=== PATIENT | male | born 1955 | race Caucasian/White ===

== ENCOUNTER 2016-08-16 12:06 | Emergency (ER) | payer MEDICARE ==
[~2016-08-16] VITALS: Ht 182.9 cm; Wt 81.6 kg
--- NOTE | 2016-08-16 12:06 | NUR ---
1CM LACERATION TO R 4TH DIGIT S/P DOG BITE. NAD NOTED. PT AAO X4, AMB WITH STEADY GAIT. RR EVEN AND UNLABORED. VSS. PA AT BEDSIDE FOR EVAL.
[2016-08-16] MEDS ORDERED: AMOX/CLAVULANATE 875 MG TABLET PO STA (12:19)
[2016-08-16] MEDS ORDERED: TDAP [DIPH/PERTUSSIS/TET] 0.5 ML VIAL IM STA (12:19)
[2016-08-16] MEDS ORDERED: LIDOCAINE 2% 20 ML MDV TP STA (12:19)
[2016-08-16] MEDS ORDERED: AMOX/CLAVULANATE 875 MG TABLET ONE (12:22)
[2016-08-16] MEDS ORDERED: TDAP [DIPH/PERTUSSIS/TET] 0.5 ML VIAL IM ONE (12:22)
--- NOTE | 2016-08-16 12:33 | NUR ---
MEDICATIONS GIVEN ORDERED.
[2016-08-16 13:11] VITALS: BP 122/75
== END 2016-08-16 13:12 | disposition home or self-care (01) ==
LOC: ER 12:10
DX: S61.254A Open bite of right ring finger without damage to nail, initial encounter (principal); W54.0XXA Bitten by dog, initial encounter; Y93.89 Activity, other specified; Y92.89 Other specified places as the place of occurrence of the external cause; Y99.8 Other external cause status
CPT/HCPCS: 12001; 90471; 90715; 99283; A4606; A6402 ×2; Z7610

== ENCOUNTER 2022-03-17 08:03 | Inpatient (IN) | payer MEDICARE, MEDICAID ==
[~2022-03-17] VITALS: Ht 170.2 cm; Wt 95.3 kg
--- NOTE | 2022-03-17 08:10 | NUR ---
BIBSELF c/o chest pain radiating to the back. pain level 8/10. alert oriented. no s/s of distress
--- NOTE | 2022-03-17 08:13 | NUR ---
hooked to monitors
--- NOTE | 2022-03-17 08:15 | NUR ---
EMT at bedside for EKG
--- NOTE | 2022-03-17 08:22 | NUR ---
IV established at RAC 20G
--- NOTE | 2022-03-17 08:25 | NUR ---
blood collected sent to lab.
[2022-03-17 08:51] LABS: BASOPHILS # (AUTO) 0.1 K/uL (0.0-0.2); BASOPHILS % (AUTO) 1.3 % (0.0-2.0); EOSINOPHILS % (AUTO) 3.1 % (0.0-6.0); HEMATOCRIT 42 % (39-51); LYMPHOCYTES # (AUTO) 2.5 K/uL (0.8-4.8); MEAN CORPUSCULAR HGB CONC 33 g/dl (31.0-36.0); MEAN CORPUSCULAR VOLUME 88 fL (80-96); MONOCYTES # (AUTO) 0.7 K/uL (0.1-1.30); NEUTROPHILS # (AUTO) 5.1 K/uL (1.8-8.9); NEUTROPHILS % (AUTO) 58.6 % (43.0-81.0); PLATELET COUNT (AUTO) 249 K/uL (150-450); RED BLOOD CELL COUNT(AUTO) 4.78 MIL/uL (4.5-6.0); WHITE BLOOD COUNT (AUTO) 8.7 K/uL (4.3-11.0)
[2022-03-17 09:13] LABS: CALCIUM, SERUM 9.4 mg/dL (8.5-10.1); CREATININE 1.6 mg/dL (0.6-1.3); POTASSIUM 3.8 mmol/L (3.5-5.1)
[2022-03-17 09:25] LABS: ALBUMIN 3.1 g/dL (3.4-5.0); BILIRUBIN,TOTAL 0.4 mg/dL (0.2-1.0); TOTAL PROTEIN, SERUM 7.4 g/dL (6.4-8.2)
[2022-03-17] MEDS ORDERED: METOPROLOL TARTRATE INJ 5 MG/5 ML AMPUL ONE ×3 (10:23→10:53)
[2022-03-17] MEDS ORDERED: IOHEXOL-350 100 ML VIAL IV ONE (10:23)
[2022-03-17] MEDS ORDERED: NITROGLYCERIN 0.4 MG/TAB BOTTLE ONE (10:23)
[2022-03-17] MEDS ORDERED: CT SWABBABLE VALVE TRANS SET 1 EA INFUS.SET MC ONE (10:23)
[2022-03-17] MEDS ORDERED: IV NS 0.9% 250 ML IV ONE (10:23)
[2022-03-17] MEDS ORDERED: ZOLPIDEM TARTRATE 5 MG TABLET PO PRN (10:30)
[2022-03-17] MEDS ORDERED: ACETAMINOPHEN 325 MG TABLET PO PRN (10:30)
[2022-03-17] MEDS ORDERED: Z GUARD REMEDY 4 OZ OINT TP PRN (10:30)
[2022-03-17] MEDS ORDERED: HYDROCODONE/APAP 10/325MG TABLET PO PRN (10:30)
[2022-03-17] MEDS ORDERED: MAGNESIUM HYDROXIDE 30 ML UDC PO PRN (10:30)
[2022-03-17] MEDS ORDERED: IV NS 0.9% 1,000 ML IV PRN (10:30)
[2022-03-17] MEDS ORDERED: MAG HYDROX/AL HYDROX/SIMETH 30 ML UDC PO PRN (10:30)
[2022-03-17] MEDS: METOPROLOL TARTRATE INJ 5 MG/5 ML AMPUL IVP PRN ×6 (10:30→10:55)
[2022-03-17] MEDS ORDERED: ONDANSETRON HCL/PF 4 MG/2 ML VIAL IVP PRN (10:30)
[2022-03-17] MEDS ORDERED: NITROGLYCERIN 0.4 MG/TAB BOTTLE SL ONE (10:30)
--- NOTE | 2022-03-17 10:35 | NUR ---
PT REPORT GIVEN TO BRANDYN BLANK
[2022-03-17] MEDS ORDERED: TAMS-12 PO (11:10)
[2022-03-17] MEDS ORDERED: ATOR40TA PO (11:10)
[2022-03-17] MEDS ORDERED: IRBE150T28 PO (11:10)
[2022-03-17] MEDS ORDERED: ERGO500093 PO (11:10)
[2022-03-17] MEDS ORDERED: ZOLP10TA2 PO (11:10)
[2022-03-17] MEDS ORDERED: METO25TA4 PO (11:10)
[2022-03-17] MEDS ORDERED: DONE5TAB34 PO (11:10)
[2022-03-17] MEDS ORDERED: FAMO40TA7 PO (11:10)
[2022-03-17] MEDS ORDERED: ASPI-1420 PO (11:10)
--- NOTE | 2022-03-17 13:23 | NUR ---
seen by Dr. king at the parking lot facility. pt assisted back to the bed.
--- NOTE | 2022-03-17 13:45 | NUR ---
PT TRANSFERRED TO [facility] VIA [facility] ACLS PROTOCOL. PT ABLE TO AMBULATE FROM [facility] TO BED W/ STEADY GAIT. WARM HANDOFF GIVEN TO BRANDYN RUIZ
--- NOTE | 2022-03-17 13:50 | NUR ---
RN NOTE- PT BROUGHT TO 313-2 FOR ADMISSION. BEGIN ADMIT PROCESS
--- NOTE | 2022-03-17 13:51 | NUR ---
MARKET DEVELOPMENT EXECUTIVE NOTE- 66 Y/O MALE BROUGHT TO ED BY FAMILY FOR CHEST PAIN. PMHX- KIDNEY INFECTION, HYDRONEPHROSIS, NEPHROSTOMY TUBE, HTN GERD, CHF. PT HX OF TOBACCO USE DAILY X YEARS. PT IS COVID NEG, NKA AND AOX4. AMBULATORY, SKIN INTACT AND AFFECT APPROPRIATE. VS STABLE, CXR UNREMARKABLE, CBC WNL, CHEM PANEL ELEVATED BUN / CREAT, ELEVATED BNP. PLACED ON TELE MONITOR - SR 80. FOOD PROVIDED, NEEDS ATTENDED, ORDERS RECEIVED AND COMPLIED WITH. SIDE RAILS UP, BED LOCKED, CALL LIGHT IN REACH . MONITOR / ASSIST
[2022-03-17 14:15] VITALS: BP 120/75
[2022-03-17 16:00] VITALS: BP 139/73
--- NOTE | 2022-03-17 18:05 | NUR ---
RN NOTE- PT SIGNED CONSENT TO GO OUTSIDE HOSPITAL TO SMOKE . PLACED IN CHART. HEAT READER ESCORTED PT DOWN.
--- NOTE | 2022-03-17 18:38 | NUR ---
PRODUCTION SUPPORT ENGINEER CLOSING NOTE PATIENT IN BED, ALERT AND ORIENTED X4. ABLE TO COMMUNICATE NEEDS WITH THE STAFF. AFEBRILE. NO C/O CHEST PAIN OR DISCOMFORT. NO SOB/WHEEZING NOTED. KEPT ON GETTING OUT OF THE UNIT DESPITE EXPLAINING HOSPITAL RULES. SIGNED SMOKING WAIVER. WITH IV ACCESS ON RIGHT ANTECUBITAL G18. SAFETY MEASURES IN PLACE. SIDE RAILS UP, BED IN LOCKED AND LOWEST POSITION. ADVISED TO USE THE CALL LIGHT WHEN IN NEED OF ASSISTANCE. ALL NURSING NEEDS ATTENDED. PATIENT WILL GO TO ICU RM 252 AT 0700 IN PREPARATION FOR PROCEDURE (TRANSESOPHAGEAL ECHOCARDIOGRAM).
--- NOTE | 2022-03-17 19:35 | NUR ---
RN OPENING NOTE RECEIVED PATIENT IN BED; AWAKE, ALERT AND ORIENTED X 4. ON ROOM AIR; TOLERATING WELL. BREATHING EVEN AND NONLABORED. NOT IN ANY FORM OF RESPIRATORY DISTRESS. DENIES ANY PAIN OR DISCOMFORT AT THIS TIME. ON TELEMETRY MONITORING WHICH READS SINUS RHYTHM HR-76 BPM. WITH IV ACCESS ON RIGHT ANTECUBITAL 18g: PATENT, INTACT AND SALINE LOCKED. ABLE TO MAKE NEEDS KNOWN. SAFETY MEASURES IMPLEMENTED: CALL LIGHT AND TABLE WITHIN REACH, SIDE RAILS UP X 2, BED IN LOWEST LOCKED POSITION. WILL CONTINUE PLAN OF CARE.
[2022-03-17 20:00] VITALS: BP 123/78
[2022-03-17] MEDS ORDERED: ATORVASTATIN 40 MG TABLET PO SCH (22:00)
--- NOTE | 2022-03-17 22:51 | NUR ---
RN NOTE ZOLPIDEM 5 MG GIVEN PO PER PATIENT'S REQUEST. WILL CONTINUE TO MONITOR
[2022-03-18] VITALS: BP 134/73
[2022-03-18 06:55] LABS: BASOPHILS # (AUTO) 0.1 K/uL (0.0-0.2); BASOPHILS % (AUTO) 0.9 % (0.0-2.0); EOSINOPHILS % (AUTO) 4.7 % (0.0-6.0); HEMATOCRIT 39 % (39-51); HEMOGLOBIN 12.8 g/dL (13.5-17.5); LYMPHOCYTES # (AUTO) 3.2 K/uL (0.8-4.8); LYMPHOCYTES % (AUTO) 36.4 % (20.0-44.0); MEAN CORPUSCULAR HGB CONC 33 g/dl (31.0-36.0); MEAN CORPUSCULAR VOLUME 89 fL (80-96); MONOCYTES # (AUTO) 0.7 K/uL (0.1-1.30); MONOCYTES % (AUTO) 8.4 % (2.0-12.0); NEUTROPHILS # (AUTO) 4.4 K/uL (1.8-8.9); NEUTROPHILS % (AUTO) 49.6 % (43.0-81.0); PLATELET COUNT (AUTO) 237 K/uL (150-450); RED BLOOD CELL COUNT(AUTO) 4.37 MIL/uL (4.5-6.0); WHITE BLOOD COUNT (AUTO) 8.8 K/uL (4.3-11.0)
[2022-03-18 07:00] VITALS: BP 146/97
--- NOTE | 2022-03-18 07:07 | NUR ---
RN CLOSING NOTE PATIENT IN BED; AWAKE, A/O X 4. STABLE ON ROOM AIR. RESPIRATION EVEN AND UNLABORED. IN NO APPARENT DISTRESS. NO C/O ANY PAIN OR DISCOMFORT AT THIS TIME. ON TELE MONITORING WHICH READS SR HR-74 BPM. WITH IV ACCESS ON RIGHT ANTECUBITAL 18g: PATENT, INTACT AND SALINE LOCKED. ALL NEEDS ATTENDED. SAFETY MEASURES IN PLACE: CALL LIGHT AND TABLE WITHIN REACH, SIDE RAILS UP X 2, BED IN LOWEST LOCKED POSITION. WHEELED TO ICU ROOM 252 AND ENDORSED TO BRANDYN POOLE FOR SAKINA.
[2022-03-18 07:25] LABS: CALCIUM, SERUM 9.4 mg/dL (8.5-10.1); CREATININE 1.6 mg/dL (0.6-1.3); MAGNESIUM 2.2 mg/dL (1.8-2.4); PHOSPHORUS 4.7 mg/dL (2.5-4.9)
[2022-03-18] MEDS ORDERED: ANESTHESIA TRAY IN PYXIS 1 EA TRAY MC ONE (07:36)
--- NOTE | 2022-03-18 07:59 | NUR ---
RN NOTES RECEIVED PATIENT IN THE BED A/O X4, PATIENT ON O2-2LNC, NO ACUTE RESPIRATORY DISTRESS,HR-70 ON BEDSIDE MONITOR. PATIENT SCHEDULED BEDSIDE PROCEDURE ROXANNA VIA Dr COLON TRAFFIC CONTROL SPECIALIST, PATIENT HAS NO ACUTE RESPIRATORY DISTRESS,REFUSING PAIN. INFUSING NS @100ML/HR ON RAC AREA INTACT. PATIENT NPO, CALL LIGHT WITHIN TO REACH. MD NEXT TO THE BED EDUCATED PATIENT ABOUT PROCEDURE. WILL FOLLOW UP.
[2022-03-18 08:00] VITALS: BP 131/74
[2022-03-18 08:18] VITALS: BP 135/72
[2022-03-18 08:30] VITALS: BP 106/71
--- NOTE | 2022-03-18 08:30 | NUR ---
rn notes bedside transesophageal echocardiogram done , patient awake, no respiratory distress, anesthesiologist next to the bed, hr-73, bp- 116/70, r-47, o2-98 2lnc. also seen hospitalist Dr Yancey patient after fully waking up will be discharge home. will monitoring.
[2022-03-18 09:00] VITALS: BP_SYST 106; BP_SYST 124; BP_DIAS 68; BP_DIAS 79
[2022-03-18] MEDS ORDERED: NICOTINE PATCH (21MG) 21 MG PATCH.TD24 TD SCH (09:00)
[2022-03-18] MEDS ORDERED: ASPIRIN 81 MG TAB.CHEW PO SCH (09:00)
--- NOTE | 2022-03-18 11:28 | NUR ---
HAND SIGN WRITER NOTES PATIENT STABLE NO SOB NOTED, VSS, DISCHARGED HOME AT THIS TIME. MED RECONCILIATION AND DISCHARGE ORDER REVIEWED AND EXPLAIN TO THE PATIENT. PATIENT VERBALIZED UNDERSTANDING. PATIENT SIGN PAPERWORK. HANDED PAPERWORK TO THE PATIENT. WILL FOLLOW PCP. BELONGING WITH THE PATIENT. ESCORTED PATIENT TO THE LOBBY FOR SAFETY. PATIENT SOCIAL SERVICES ASSISTANT VIA FRIEND NAME SHERLYN PHONE # [phone].
== END 2022-03-18 11:52 | disposition home or self-care (01) | DRG 206 ==
LOC: ER 08:16 → TELE 10:11 → ICU 03-18 06:58
PROVIDERS: ADMIT Internal Medicine; ATTEND Internal Medicine
PROC: B24BZZ4 Ultrasonography of Heart with Aorta, Transesophageal (ICD-10-PCS; principal; 2022-03-18)
DX: M94.0 Chondrocostal junction syndrome [Tietze] (principal); I25.10 Atherosclerotic heart disease of native coronary artery without angina pectoris; K21.9 Gastro-esophageal reflux disease without esophagitis; Z20.822 Contact with and (suspected) exposure to COVID-19; N18.9 Chronic kidney disease, unspecified; I12.9 Hypertensive chronic kidney disease with stage 1 through stage 4 chronic kidney disease, or unspecified chronic kidney disease; Z79.82 Long term (current) use of aspirin; Z79.899 Other long term (current) drug therapy; E78.5 Hyperlipidemia, unspecified; Z90.5 Acquired absence of kidney; Z93.6 Other artificial openings of urinary tract status; E66.9 Obesity, unspecified; Z72.0 Tobacco use; Z68.32 Body mass index [BMI] 32.0-32.9, adult
CPT/HCPCS: 36415; 71045-TC; 75574; 76770-TC; 80048-TC; 80053-TC; 83690-TC; 83735-TC; 83880; 84100-TC; 84484-TC; 85025-TC; 87040-TC; 87081-TC; 93312-TC; G0378; J2704; J3490; J7030; J7040; J7050; Q9967